=== PATIENT | male | born 1980 | race Caucasian/White ===

== ENCOUNTER 2023-04-08 12:59 | Emergency (ER) | payer OTHER ==
[~2023-04-08] VITALS: Ht 160 cm; Wt 73.5 kg
== END 2023-04-08 15:22 | disposition home or self-care (01) ==
LOC: ER 12:59
DX: S63.592A Other specified sprain of left wrist, initial encounter (principal); X58.XXXA Exposure to other specified factors, initial encounter; Y93.89 Activity, other specified; Y92.89 Other specified places as the place of occurrence of the external cause; Y99.8 Other external cause status